=== PATIENT | male | born 2000 | race American Indian/Alaskan Native ===

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

== ENCOUNTER 2021-09-13 12:04 | Emergency (ER) | payer OTHER ==
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
[2021-09-13 13:41] VITALS: BP 120/78
== END 2021-09-13 13:41 | disposition home or self-care (01) ==
LOC: ED 12:04
DX: M54.50 Low back pain, unspecified (principal); M41.9 Scoliosis, unspecified; V49.40XA Driver injured in collision with unspecified motor vehicles in traffic accident, initial encounter; Y93.89 Activity, other specified; Y92.89 Other specified places as the place of occurrence of the external cause; Y99.8 Other external cause status
CPT/HCPCS: 72100; 99283